=== PATIENT | female | born 1960 | race Caucasian/White ===

== ENCOUNTER 2020-04-16 12:51 | Emergency (ER) | payer BC ==
[~2020-04-16] VITALS: Ht 172.7 cm; Wt 79.4 kg
[2020-04-16 13:00] VITALS: BP_SYST 153
[2020-04-16 13:44] LABS: BASOPHILS % (AUTO) 0.5 % (0.0-2.0); EOSINOPHILS # (AUTO) 0.1 K/uL (0.0-0.4); EOSINOPHILS % (AUTO) 1.6 % (0.0-4.0); HEMATOCRIT 46.8 % (36-48); HEMOGLOBIN 15.9 g/dL (12.0-16.0); LYMPHOCYTES # (AUTO) 1.5 K/uL (1.0-5.5); LYMPHOCYTES % (AUTO) 22.4 % (20.5-51.5); MEAN CORPUSCULAR HEMOGLOBIN 32 pg (27-31); MEAN CORPUSCULAR HGB CONC 34 % (32-36); MEAN CORPUSCULAR VOLUME 93 fL (79.0-98.0); MONOCYTES # (AUTO) 0.4 K/uL (0.0-1.0); MONOCYTES % (AUTO) 6.7 % (1.7-9.3); NEUTROPHILS # (AUTO) 4.6 K/uL (1.8-7.7); NEUTROPHILS % (AUTO) 68.8 % (40.0-70.0); PLATELET COUNT (AUTO) 299 K/uL (130-430); RED BLOOD CELL COUNT(AUTO) 5.04 MIL/uL (4.2-6.2); RED CELL DISTRIBUTION WIDTH 14.5 % (9.0-15.0); WHITE BLOOD COUNT (AUTO) 6.7 K/uL (4.8-10.8)
[2020-04-16 13:47] LABS: BILIRUBIN,URINE 1+ (NEGATIVE); BLOOD, URINE 1+ (NEGATIVE); CLARITY/URINE SL CLOUDY (CLEAR); COLOR,URINE YELLOW (YELLOW); GLUCOSE,URINE NEGATIVE (NEGATIVE); KETONES,URINE 1+ (NEGATIVE); LEUKOCYTE ESTERASE ,URINE 1+ (NEGATIVE); NITRITE, URINE NEGATIVE (NEGATIVE); PROTEIN URINE NEGATIVE (NEGATIVE)
[2020-04-16 13:59] LABS: CALCIUM 9.2 mg/dL (8.4-11.0); CREATININE 1.25 mg/dL (0.55-1.30); POTASSIUM 3.9 mmol/L (3.5-5.1)
[2020-04-16 14:08] LABS: BACTERIA,URINE MODERATE /HPF (None Seen)
[2020-04-16 14:10] LABS: ALBUMIN 4.4 g/dL (3.4-4.8); TOTAL BILIRUBIN 1.2 mg/dL (0.0-1.0)
--- NOTE | 2020-04-16 14:15 | NUR ---
Pt brought by self, A&Ox4, pt presents to ER with R upper quadrant abdominal pain and nausea,pt states she has Hx of polyp in the gallbladder, skin pink and warm, cap refill <3, VSS, respirations even and unlabored.pt is under a lot of stress, will cont to monitor.
--- NOTE | 2020-04-16 14:51 | NUR ---
Dr Cruz assessing patient at triage room
[2020-04-16 15:01] VITALS: BP_SYST 153
--- NOTE | 2020-04-16 15:02 | NUR ---
Patient given written and verbal discharge instructions and verbalizes understanding. ER MD discussed with patient the results and treatment provided. Patient in stable condition. ID arm band removed. Rx of Pepcid, Macrobid given. Patient educated on pain management and to follow up with PMD. Pain Scale 3/10 tolerable for patient . Opportunity for questions provided and answered. Medication side effect fact sheet provided.
== END 2020-04-16 15:02 | disposition home or self-care (01) ==
LOC: SED 12:51
DX: K31.89 Other diseases of stomach and duodenum (principal); N39.0 Urinary tract infection, site not specified; Z88.0 Allergy status to penicillin; Z88.1 Allergy status to other antibiotic agents; Z88.8 Allergy status to other drugs, medicaments and biological substances; Z88.6 Allergy status to analgesic agent
CPT/HCPCS: 36415; 76700-TC; 80053; 81000-TC; 82150-TC; 83690-TC; 85025; 87086; 99284